=== PATIENT | female | born 1985 | race Two or more races ===

== ENCOUNTER 2024-06-23 10:09 | Outpatient (AMB) | payer MEDICAID, SELFPAY ==
[2024-06-23 10:32] VITALS: BP 113/80; PULSE 98; RESP 18; TEMP 36.4; O2SAT 97; BMI 30.4
--- NOTE | 2024-06-23 10:32 | PD.ORTHCLVIS ---
Vital signs 06/23/24 10:32 Height 1.63 m Height Method Stated Weight 80.484 kg Weight Measurement Method Standing Scale BMI 30.4 BP 113/80 Blood Pressure Source Automatic Cuff Blood Pressure Location Left Upper Arm Position Sitting Respiration 18 Pulse 98 Pulse Source Monitor Temp 97.6 F Temp Source Temporal Artery Scan Pulse Oximetry (%) 97 Oxygen Delivery Method Room Air Med/Allergies Allergies & Medications Allergies ibuprofen [From Motrin] Allergy (Verified 06/23/24 10:33) Penicillins Allergy (Verified 06/23/24 10:33) Sulfa (Sulfonamide Antibiotics) Allergy (Verified 06/23/24 10:33) Medication Reconciliation Unobtainable 06/23/24 [History Confirmed 06/23/24] Exam Exam Patient is in no acute distress and is cooperative with the examination today. Breathing is nonlabored. In no respiratory distress. Patient has no paraspinal tenderness. Spinal deformity cannot be appreciated. The gait of the patient is nonantalgic Bilateral extremities were evaluated and demonstrates sensation intact to light touch. Palpable pedal pulses are present. No significant edema is present. Bilateral knees were examined and the patient has full strength and range of motion.. The right hip was examined. Patient was able to flex to 90 degrees, adduct to 30 degrees, abduct to 40 degrees, internally rotate to 20 degrees, and externally rotate to 20 degrees. Patient has a negative logroll. Stinchfield is negative. The patient is nontender diffusely to touch. The left hip was examined. Patient was able to flex to 90 degrees, adduct to 30 degrees, abduct to 40 degrees, internally rotate to 20 degrees, and externally rotate to 20 degrees. Patient has a negative logroll. The stinchfield is negative. Assessment and Plan Problem List (1) Bilateral hip pain: Status: Acute Plan: Is a 39-year-old female with bilateral knee in the groin and Dr Azevedo weight on the feet. She does have a history of back pains for 1 cm. We will start by obtaining hip films. 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 Level 3 ([id number]) MA Intake Visit Data Collection New Patient or Established: New Patient (never been to [facility]) Reason for Visit:: LEFT HIP PAIN Seen by Clinical Staff ONLY (RN/MA): No Malt House Supervisor Required: No PCP or OBGYN visit in last 3 months: Yes Hx Now: No Do You Feel Safe at Home: Yes Authorities Contacted: N/A Questionairres Past Medical History Past Medical History Have you ever been diagnosed with any of the following: Subjective Visit Visit for: new patient and knee Immunization / Flu Flu Vaccine in the Last 12 Months: No Flu Vaccine Exclusion Criteria: No Exclusion Criteria History of Present Illness Chief complaint: Bilateral hip and back pain Raeann is a pleasant 39-year-old female presenting today for bilateral hip pain that is worse on the right.Patient reports pain with movement in the right groin.Patient reports pain in the left [place].Patient reports that this pain is limiting her daily activities and is seeking pain management.Patient reports that she has tried spinal And SI joint injections which did relieve the pain for about 4 weeks each time that they were performed.Patient reports she has not tried any hip injections. Pain Pain level (0-10): 2 Pain duration: ON AND OFF Pain location: inside (medial) and anterior Pain quality: aching and tingling Pain timing: increases with activity and stairs Associated signs & symptoms: numbness Ambulatory data Ambulatory device: none Treatments Improvement with previous injections: No Improvement with PT: No Improvement with NSAIDS: no Review of Systems Review of Systems: All systems negative unless otherwise noted in HPI.
== END 2024-06-23 10:55 | disposition home or self-care (01) ==
LOC: HODSRG 10:09
PROVIDERS: PCP Family Medicine; Referring Provider Family Medicine; Supervising Provider Orthopaedic Surgery Adult Reconstructive Orthopaedic Surgery; Visit Provider Orthopaedic Surgery Adult Reconstructive Orthopaedic Surgery
DX: M25.551 Pain in right hip (principal); M25.552 Pain in left hip
CPT/HCPCS: 99203; G0463

== ENCOUNTER 2024-07-11 11:13 | Outpatient (AMB) | payer MEDICAID, SELFPAY ==
--- NOTE | 2024-07-11 11:07 | PD.ORTHTELE ---
Med/Allergies Allergies & Medications Allergies ibuprofen (From Motrin) Allergy (Verified 07/11/24 11:07) Penicillins Allergy (Verified 07/11/24 11:07) Sulfa (Sulfonamide Antibiotics) Allergy (Verified 07/11/24 11:07) Medication Reconciliation Unobtainable 06/23/24 [History Confirmed 07/11/24] Subjective Visit Visit for: follow up visit and x-rays Immunization / Flu Flu Vaccine in the Last 12 Months: Yes Flu Vaccine Exclusion Criteria: Already Received History of Present Illness Chief complaint: TELEMED XRAYS Jacey is a pleasant 39-year-old female presenting today for bilateral hip pain that is worse on the right. Patient reports a lot of pain in the buttocks. She reports a lot of pain shooting all the way down her legs into her toes as well Patient reports that this pain is limiting her daily activities and is seeking pain management. Patient reports that she has tried spinal And SI joint injections which did relieve the pain for about 4 weeks each time that they were performed.Patient reports she has not tried any hip injections. Pain Pain level (0-10): 2 Pain duration: ALL DAY Pain location: inside (medial), outside (lateral), anterior and posterior Pain quality: sharp, dull and aching Pain timing: increases with activity Ambulatory data Ambulatory device: none Treatments Improvement with previous injections: No Improvement with PT: No Improvement with NSAIDS: no Review of Systems Review of Systems: All systems negative unless otherwise noted in HPI. Assessment and Plan Problem List (1) Bilateral hip pain: Status: Acute Plan: Is a 39-year-old female with bilateral knee in the groin And back as well as the feet. The pain is radicular in nature and she has a normal MRI as well as bilateral Hip x-rays. We thus recommend that he see a spine doctor. 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
== END 2024-07-11 11:18 | disposition home or self-care (01) ==
LOC: HODSRG 11:13
PROVIDERS: PCP Family Medicine; Referring Provider Family Medicine; Supervising Provider Orthopaedic Surgery Adult Reconstructive Orthopaedic Surgery; Visit Provider Orthopaedic Surgery Adult Reconstructive Orthopaedic Surgery
DX: M25.552 Pain in left hip (principal); M25.551 Pain in right hip
CPT/HCPCS: 99212; G0463